=== PATIENT | female | born 1990 | race Caucasian/White ===

== ENCOUNTER 2025-10-06 12:21 | Outpatient (CLI) | payer OTHER ==
--- NOTE | 2025-10-06 13:44 | RADIOLOGY REPORT ---
INDICATION: pain ARTHRITIS COMPARISON: None TECHNIQUE: 3 views of the lumbar spine were obtained. FINDINGS: The lumbar vertebral alignment is normal. The intervertebral disc spaces are well-maintained. No significant facet arthropathy is noted. No acute fracture, vertebral compression deformity or aggressive osseous lesions. The paravertebral soft tissues are grossly unremarkable. IMPRESSION: No acute fracture.
== END 2025-10-06 23:59 | disposition home or self-care (01) ==
LOC: RAD 12:21
PROVIDERS: ATTEND Chiropractor
DX: M13.80 Other specified arthritis, unspecified site (principal)
CPT/HCPCS: 72100